=== PATIENT | female | born 1980 | race Caucasian/White ===

== ENCOUNTER 2017-04-24 15:32 | Emergency (ER) | payer BC, OTHER ==
[2017-04-24 15:58] VITALS: BP 116/75; PULSE 73; TEMP 98; BMI 31.4
--- NOTE | 2017-04-24 16:15 | PDOC ---
History of Present Illness - General Chief Complaint: Injury Stated Complaint: INJURY Time Seen by Provider: 04/24/17 16:07 History Source: Patient Exam Limitations: No Limitations - History of Present Illness Initial Comments: 04/24/17 16:13 Chief complaint: Left palm laceration History of present illness: Patient is a 36-year-old female with no significant medical history here today with a superficial laceration to her left palm proximal to her left thumb on patient accidentally cut herself with a scissor when trying to open a package. Patient has full range of motion of left thumb and all digits on left hand and left wrist. Patient is up-to-date with tetanus. 04/24/17 16:15 Occurred: reports: just prior to arrival Severity: reports: mild Pain Location: reports: upper extremity (left palm proximal to left thumb linear laceration ') Method of Injury: Yes: direct blow (by a scizzor ) Modifying Factors: improves with: other (pressure to wound) Past History - Past Medical History Allergies/Adverse Reactions: Allergies Allergy/AdvReac Type Severity Reaction Status Date / Time No Known Allergies Allergy Verified 04/24/17 15:51 Home Medications: Ambulatory Orders NK [No Known Home Medication] 04/24/17 Asthma: No Cancer: No Cardiac Disorders: No Diabetes: No HTN: No Seizures: No Thyroid Disease: No - Immunization History Immunization Up to Date: Yes - Psycho/Social/Smoking Cessation Hx Anxiety: No Suicidal Ideation: No Smoking Status: No Smoking History: Never smoked Have you smoked in the past 12 months: No Number of Cigarettes Smoked Daily: 0 Information on smoking cessation initiated: No Hx Alcohol Use: No Drug/Substance Use Hx: No Substance Use Type: None Hx Substance Use Treatment: No Review of Systems - Review of Systems Able to Perform ROS?: Yes Constitutional: No: Symptoms Reported HEENTM: No: Symptoms Reported Respiratory: No: Symptoms reported Cardiac (ROS): No: Symptoms Reported ABD/GI: No: Symptoms Reported : No: Symptoms Reported Musculoskeletal: No: Symptoms Reported Integumentary: Yes: Other (left palm laceration proximal to thumb linear 2 cm x -.25 cm ) Neurological: No: Symptoms reported *Physical Exam - Vital Signs Last Vital Signs Temp Pulse Resp BP Pulse Ox 98.0 F 73 17 116/75 100 04/24/17 15:52 04/24/17 15:52 04/24/17 15:52 04/24/17 15:52 04/24/17 15:52 - Physical Exam General Appearance: Yes: Appropriately Dressed Comments:: 04/24/17 16:12 radial pulse 4 + left Extremity: positive: Normal Capillary Refill, Normal Range of Motion (left thumb , all digits left hand and left wrist ) Integumentary: positive: Other (linear laceration left palm proximal to thumb ) Neurologic: positive: Normal Response, Respond to painful stimul, Responsive. negative: Numbness, Sensory Deficit (left hand/digits ) Procedures - Consent Consent obtained: From Patient - Laceration/Wound Repair Left Proximal Volar Hand Wound Length: to 2.5 cm Wound Explored: clean Wound's Depth, Shape: superficial, linear Irrigated w/ Saline: Yes Betadine Prep: Yes Wound Repaired With: Dermabond (applied left palm proximal to left thumnb ) Sterile Dressing Applied: Yes Splint Applied: Yes (evaristo wrap) Medical Decision Making - Medical Decision Making 04/24/17 16:15 Patient is a 36-year-old female with no significant medical history here today with a superficial laceration to her left palm proximal to her left thumb on patient accidentally cut herself with a scissor when trying to open a package. Patient has full range of motion of left thumb and all digits on left hand and left wrist. Patient is up-to-date with tetanus. left palm laceration *DC/Admit/Observation/Transfer Diagnosis at time of Disposition: Laceration of left palm without complication Qualifiers: Encounter type: initial encounter Qualified Code(s): S61.412A - Laceration without foreign body of left hand, initial encounter - Discharge Dispostion Disposition: HOME Condition at time of disposition: Stable - Patient Instructions Additional Instructions: Keep wound dry today and tomorrow may take off dressing and wash with antibacterial soap and water do not scrub area where Dermabond to apply bandage or Band-Aid and reapply Evaristo wrap for the next 2 days may take Evaristo wrap off at night Allow Dermabond to fall off naturally once it does then may apply tiny amount of bacitracin ointment twice daily to wound Return to emergency room if any fever or redness around wound or discharge from wound or swelling of area Patient voiced understanding of discharge instructions and all questions were answered
== END 2017-04-24 17:07 | disposition home or self-care (01) ==
LOC: JERFT 15:32
PROC: 0HQGXZZ Repair Left Hand Skin, External Approach (ICD-10-PCS; principal; 2017-04-24)
DX: S61.412A Laceration without foreign body of left hand, initial encounter (principal); W45.8XXA Other foreign body or object entering through skin, initial encounter; Y93.89 Activity, other specified; Y92.9 Unspecified place or not applicable
CPT/HCPCS: 99281-25

== ENCOUNTER 2025-02-07 21:52 | Emergency (ER) | payer BC, OTHER ==
[2025-02-07 22:03] VITALS: BP 117/79; PULSE 98; RESP 18; TEMP 97.9; BMI 34.4
[2025-02-07 22:51] LABS: ABSOLUTE IMMATURE GRANULOCYTES 0.05 x10^3/uL (0.0-0.031); BASOPHILS # 0.08 x10^3/uL (0.01-0.08); EOSINOPHIL % 1.1 % (0.7-5.8); EOSINOPHILS # 0.14 x10^3/uL (0.04-0.36); HEMATOCRIT 35.1 % (34.1-44.9); MCHC 31.3 g/dl (32.2-35.5); MEAN CELL VOLUME 78.5 fl (79.4-94.8); MEAN PLT VOLUME 8.9 fl (9.4-12.3); MONOCYTE # 0.72 x10^3/uL (0.24-0.86); MONOCYTE % 5.6 % (4.7-12.5); PLATELET COUNT 423 x10^3/uL (182-369); RDW 15.8 % (12.2-17.1)
[2025-02-07] MEDS ORDERED: KETOROLAC TROMETHAMINE 15 MG/ML VIAL ONE (22:53)
[2025-02-07] MEDS: KETOROLAC TROMETHAMINE 15 MG/ML VIAL IVPUSH ONE (22:55)
[2025-02-07 23:45] LABS: POTASSIUM 3.9 mmol/L (3.5-5.1)
[2025-02-07 23:47] LABS: CALCIUM 9.3 mg/dL (8.5-10.1)
[2025-02-07 23:48] LABS: ALBUMIN 3.9 g/dl (3.4-5.0); BLOOD UREA NITROGEN 17.2 mg/dL (7-18)
[2025-02-07 23:50] LABS: CREATININE 0.8 mg/dL (0.55-1.3)
[2025-02-07 23:52] LABS: BILIRUBIN,TOTAL 0.3 mg/dL (0.2-1); TOT PROT 7.2 g/dl (6.4-8.2)
[2025-02-08 01:19] LABS: EPI CELLS >36 /uL (0-25.1); HYALINE CASTS 1 /uL (0-3.1); URINE APPEARANCE CLEAR; URINE BACTERIA 501 /uL (0-1359); URINE BILIRUBIN NEGATIVE (NEGATIVE); URINE COLOR YELLOW; URINE GLUCOSE (UA) NEGATIVE (NEGATIVE); URINE KETONE TRACE (NEGATIVE); URINE LEUK ESTERASE NEGATIVE (NEGATIVE); URINE NITRITE NEGATIVE (NEGATIVE); URINE PROTEIN 1+ (NEGATIVE); URINE RBC 33 /uL (0-23.9); URINE UROBILINOGEN 0.2 mg/dL (0.2-1.0)
[2025-02-08] MEDS ORDERED: TAMSULOSIN HCL 0.4 MG CAP ONE (01:55)
[2025-02-08] MEDS ORDERED: CEFTRIAXONE 1 G/50 ML PREMIX 50 ML IVPB ONE (01:55)
[2025-02-08] MEDS: TAMSULOSIN HCL 0.4 MG CAP PO ONE (02:01)
[2025-02-08 07:36] LABS: URINE CRYSTALS MODERATE /hpf; YEAST FEW (NEGATIVE)
== END 2025-02-08 02:15 | disposition home or self-care (01) ==
LOC: JER 21:52
PROC: 3E0333Z Introduction of Anti-inflammatory into Peripheral Vein, Percutaneous Approach (ICD-10-PCS; principal; 2025-02-07)
PROC: 3E03329 Introduction of Other Anti-infective into Peripheral Vein, Percutaneous Approach (ICD-10-PCS; 2025-02-08)
DX: N13.6 Pyonephrosis (principal); R35.0 Frequency of micturition; R11.0 Nausea; R30.0 Dysuria; R10.31 Right lower quadrant pain
CPT/HCPCS: 36415; 74176-TC; 80053; 81003; 84703; 85025; 87086; 99285-25